=== PATIENT | female | born 1955 | race Caucasian/White ===

== ENCOUNTER 2020-07-19 05:29 | Outpatient (RCR) | payer OTHER ==
[~2020-07-19] VITALS: Ht 152.4 cm; Wt 125.7 kg
[2020-07-19] MEDS ORDERED: OMEP40CA27 PO (14:28)
[2020-07-19] MEDS ORDERED: AMLO-250 PO (14:28)
[2020-07-19] MEDS ORDERED: TRAM50TA3 PO (14:28)
[2020-07-19] MEDS ORDERED: TERB250T16 PO (14:28)
[2020-07-19] MEDS ORDERED: LISI20TA26 PO (14:28)
[2020-07-19] MEDS ORDERED: LABE200T7 PO (14:28)
== END 2020-07-19 14:47 | disposition home or self-care (01) ==
LOC: PREOP 05:29
PROVIDERS: ATTEND Surgery
DX: Z01.818 Encounter for other preprocedural examination (principal)

== ENCOUNTER → 2020-07-23 | Outpatient (CLI) | payer OTHER ==
[~2020-07-23] MED LIST: AMLO-250 PO; LABE200T7 PO; LISI20TA26 PO; OMEP40CA27 PO; TERB250T16 PO; TRAM50TA3 PO
== END ==
LOC: LAB FS 10:50
PROVIDERS: ATTEND Surgery
DX: Z01.812 Encounter for preprocedural laboratory examination (principal); R19.5 Other fecal abnormalities; Z20.822 Contact with and (suspected) exposure to COVID-19
CPT/HCPCS: 87635

== ENCOUNTER 2020-07-26 08:43 | Day surgery (SDC) | payer OTHER ==
[~2020-07-26] VITALS: Ht 152.4 cm; Wt 125.7 kg
[~2020-07-26 08:43] MED LIST changes: +LACTATED RINGERS 1,000 ML IV ONE
--- NOTE | 2020-07-26 09:03 | Progress Note-Pre Operative ---
Pre-Operative Progress Note H&P Reviewed The H&P was reviewed, patient examined and no changes noted. Time Seen by Provider: 09:01 Date H&P Reviewed: July 26, 2020 Time H&P Reviewed: 09:01 Pre-Operative Diagnosis: +MINNIE Hilton ERIC B DO July 26, 2020 09:03
[2020-07-26 09:05] VITALS: BP 172/97
[2020-07-26] MEDS ORDERED: HURRICAINE EXT TUBE (BENZOCAINE) XX PRN (09:30)
[2020-07-26] MEDS ORDERED: LACTATED RINGERS 1,000 ML IV SCH (09:30)
[2020-07-26] MEDS ORDERED: MIDAZOLAM 2 MG/2 ML (VERSED) VIAL ONE (10:00)
[2020-07-26] MEDS ORDERED: PROPOFOL INJECTION 50 ML IV ONE ×2 (10:00→10:24)
[2020-07-26 10:50] VITALS: BP 149/58
[2020-07-26 10:58] VITALS: BP 158/68
--- NOTE | 2020-07-26 11:03 | Progress Note-Post Operative ---
Post-Operative Progess Note Surgeon (s)/Rn Admission (s) Surgeon RACHAEL CHOWDARY DO Rn Admission: none Pre-Operative Diagnosis +Cologuard, GERD Post-Operative Diagnosis Gastritis colon polyps diverticulitis int hemorrhoids Procedure & Operative Findings Date of Procedure 07/26/20 Procedure Performed/Findings EGD with bx Colon with hot bx Anesthesia Type IV sedation by RN ADMISSION Estimated Blood Loss Estimated blood loss (mL): scant Specimens/Packing Specimens Removed antral bx body of stomach bx GE jxn bx asc colon polyp RACHAEL CHOWDARY DO July 26, 2020 11:03
--- NOTE | 2020-07-26 11:04 | Endoscopy Discharge Instruct ---
Endo Procedure/Findings Findings 1.: Gastritis 2.: Polyp 3.: Diverticulosis 4.: Internal Hemorrhoids Discharge Instructions - Activity: You might feel a little sleepy until tomorrow. This is due to the medicine you received to relax you. Until tomorrow, you should: NOT drive a car, operate machinery or power tools. NOT drink any alcoholic beverages. NOT make any important decisions or sign importortant papers. Do not return to work until tomorrow, unless otherwise instructed. Resume previo us activities tomorrow. Diet: Start by taking liquids. If you tolerate liquids, advance to solid food. 1.: EGD in 3 years 2.: Colonscopy in 5 years Notify Physician - If you experience excessive bleeding, unusual abdominal pain, fever, or chest pain, contact your doctor immediately. RACHAEL CHOWDARY DO July 26, 2020 11:04
[2020-07-26 11:05] VITALS: BP 158/68
--- NOTE | 2020-07-26 11:18 | Anesthesia-General Post-Op ---
MAC Patient Condition Mental Status/LOC: Same as Preop Cardiovascular: Satisfactory Nausea/Vomiting: Absent Respiratory: Satisfactory Pain: Controlled Complications: Absent Post Op Complications Complications None Follow Up Care/Instructions Patient Instructions None needed. Anesthesiology Discharge Order Discharge Order Patient is doing well, no complaints, stable vital signs, no apparent adverse anesthesia problems. No complications reported per nursing. HENRY HERMOSILLO CRNA July 26, 2020 11:18
[2020-07-26 11:29] VITALS: BP 168/93
[2020-07-26 11:30] VITALS: BP 168/93
--- NOTE | 2020-07-26 21:18 | OPERATIVE REPORT ---
DATE OF SERVICE: PREOPERATIVE DIAGNOSES: Positive Cologuard and history of gastroesophageal reflux disease. POSTOPERATIVE DIAGNOSES: 1. Gastritis. 2. Colon polyps. 3. Diverticula. 4. Internal hemorrhoids. PROCEDURES: 1. EGD with biopsy. 2. Colonoscopy with hot biopsy. SURGEON: Yuval Carver DO FRUIT INSPECTOR: None. ANESTHESIA: IV sedation by the INCLUSION INTERN. SPECIMEN: Biopsy from the antrum, biopsy of body of stomach, biopsy from the GE junction as well as then ascending colon polyp taken, two hot biopsies performed. INDICATION FOR PROCEDURE: The patient is a 64-year-old female who had a positive Cologuard and has some GERD and needed a workup. FINDINGS: The patient had mild gastritis. She also had polyps, diverticula and internal hemorrhoids. PROCEDURE NOTE: After informed consent was obtained, the patient was brought to the endoscopy suite, placed in bed in left lateral decubitus position. She was administered IV sedation by the INCLUSION INTERN who then monitored her vitals the entire time, heart rate, blood pressure and pulse ox, started with the EGD, placed the scope down the mouth through the esophagus into the stomach, noted some gastritis, took a picture, pushed into the duodenum. Duodenum looked fine. Pulled back and did a biopsy of the antrum as well as biopsy of body of stomach, retroflexed the scope. She had a small sliding hiatal hernia, pulled the scope into the GE junction, did a biopsy here and then pushed the scope back into the stomach and suctioned all the air out, then pulled the scope up the esophagus and out the mouth. Switched camera, switched gloves, went down below, started the colonoscopy. On the way in, noted some diverticula, took a picture of this, then pushed all the way to the cecum about 150 cm in, took a picture of the cecum and then slowly withdrew the scope insufflating to look circumferentially at the [place] looking the cecum, up the ascending colon. In the ascending colon, I saw a polyp, did two biopsies to make sure I got a good specimen and then continued up the ascending colon to the hepatic flexure, down the transverse colon, splenic flexure, into the descending colon down into the sigmoid and finally into the rectum, retroflexed in rectal vault, saw some minimal internal hemorrhoids, took a picture of this and then removed the scope. The patient tolerated the procedure. She recovered in endoscopy suite. Job ID: [id number] DocumentID: [id number] Dictated Date: 07/26/2020 14:40:38 Cardroom Drawing Runner Date: 07/26/2020 21:16:39 Dictated By: YUVAL CARVER DO
== END 2020-07-26 11:32 | disposition home or self-care (01) ==
LOC: ENDO 08:43
PROVIDERS: ATTEND Surgery
DX: D12.2 Benign neoplasm of ascending colon (principal); K29.50 Unspecified chronic gastritis without bleeding; K57.30 Diverticulosis of large intestine without perforation or abscess without bleeding; K64.8 Other hemorrhoids; K21.9 Gastro-esophageal reflux disease without esophagitis; I10 Essential (primary) hypertension; E66.01 Morbid (severe) obesity due to excess calories; Z68.43 Body mass index [BMI] 50.0-59.9, adult; Z79.899 Other long term (current) drug therapy
CPT/HCPCS: 88305